=== PATIENT | female | born 1975 | race African-American/Black ===

== ENCOUNTER 2018-04-16 16:42 | Outpatient (CLI) | payer BC, OTHER ==
--- NOTE | 2018-04-17 12:50 | Ultrasound Report ---
PELVIC ULTRASOUND: 04/16/2018 CLINICAL INDICATION: Leiomyoma. TECHNIQUE: Transabdominal pelvic ultrasound performed for global evaluation. Transvaginal pelvic ultrasound performed for detailed evaluation. Real-time scanning performed and static images obtained. FINDINGS: The uterus is anteverted, measuring 14.8 x 12.4 x 7.9 cm. The endometrium measures 10 mm. The myometrium is diffusely heterogeneous, with leiomyomas measuring up to 7.4 cm in size. The ovaries are normal, with the right measuring 2.7 x 2.2 x 1.7 cm and the left measuring 2.1 x 1.8 x 1.4 cm. No free fluid is present. IMPRESSION: DIFFUSELY LEIOMYOMATOUS UTERUS, WITH DISCRETE LEIOMYOMAS MEASURING UP TO 7.4 CM IN SIZE. NORMAL OVARIES. TD: 04/17/2018 12:08
== END 2018-04-16 16:43 | disposition home or self-care (01) ==
LOC: DI 16:42
PROVIDERS: ATTEND Obstetrics & Gynecology
DX: D25.9 Leiomyoma of uterus, unspecified (principal)
CPT/HCPCS: 76830; 76856

== ENCOUNTER 2018-11-04 13:24 | Outpatient (CLI) | payer OTHER ==
--- NOTE | 2018-11-04 14:58 | XRAY Report ---
Reason: THORACIC BACK PAIN,LUMBAGO WITH SCIATICA,RIGHT VALENTINO Procedure Date: 11/04/2018 Accession Number: [id number] / [id number] Procedure: XRN - Lumbar Spine 2 View CPT Code: FULL RESULT: EXAM: LUMBOSACRAL SPINE RADIOGRAPHY EXAM DATE: 11/04/2018 01:50 PM. CLINICAL HISTORY: Thoracic back pain, lumbago with sciatica, right side. COMPARISONS: Thoracic spine 3 views 11/04/2018 1:46 PM. TECHNIQUE: 3 views. FINDINGS: Alignment: Normal. No spondylolisthesis or scoliosis. Bones: Five [id number]-[id number] lumbar vertebral bodies are present. No fractures or bone lesions. Disks: Normal. Disk heights are maintained. Facets: No degenerative changes. Sacroiliac Joints: Unremarkable. Soft Tissues: Normal. The visualized bowel gas pattern is normal. IMPRESSION: Normal lumbar spine radiography. RADIA
--- NOTE | 2018-11-04 14:59 | XRAY Report ---
Reason: THORACIC BACK PAIN,LUMBAGO WITH SCIATICA,RIGHT VALENTINO Procedure Date: 11/04/2018 Accession Number: [id number] / [id number] Procedure: XRN - Thoracic Spine 3 View CPT Code: FULL RESULT: EXAM: THORACIC SPINE RADIOGRAPHY EXAM DATE: 11/04/2018 01:50 PM. CLINICAL HISTORY: Thoracic back pain, lumbago with sciatica, right side. COMPARISON: None. TECHNIQUE: 2 views. FINDINGS: Alignment: Normal. No spondylolisthesis or scoliosis. Bones: No fractures or bone lesions. Disks: Normal. Disk heights are maintained. Soft Tissues: Normal. The visualized lungs and cardiomediastinal silhouette are normal. IMPRESSION: Normal thoracic spine radiography. RADIA
== END 2018-11-04 13:25 | disposition home or self-care (01) ==
LOC: DI.N 13:24
PROVIDERS: ATTEND Nurse Practitioner
DX: M54.6 Pain in thoracic spine (principal); M54.41 Lumbago with sciatica, right side
CPT/HCPCS: 72072; 72100

== ENCOUNTER 2019-01-06 08:00 | Outpatient (CLI) | payer OTHER ==
[2019-01-06 12:53] LABS: CALCIUM 8.6 mg/dL (8.5-10.3); CREATININE 0.6 mg/dL (0.4-1.0)
[2019-01-06 13:47] LABS: BASOPHILS % (AUTO) 0.6 %; EOSINOPHILS # (AUTO) 0.1 10^3/uL (0.0-0.7); EOSINOPHILS % (AUTO) 0.9 %; HGB - HEMOGLOBIN 12.1 g/dL (12.0-16.0); LYMPHOCYTES # (AUTO) 2.7 10^3/uL (1.5-3.5); LYMPHOCYTES % (AUTO) 47.1 %; MEAN CORPUSCULAR HEMOGLOBIN 25.7 pg (27.0-31.0); MEAN CORPUSCULAR VOLUME 80.3 fL (81.0-99.0); MEAN PLATELET VOLUME 8.3 fL (7.9-10.8); MONOCYTES # (AUTO) 0.5 10^3/uL (0.0-1.0); MONOCYTES % (AUTO) 8.7 %; NEUTROPHILS # (AUTO) 2.4 10^3/uL (1.5-6.6); NEUTROPHILS % (AUTO) 42.7 %; PLT - PLATELET COUNT 299 10^3/uL (130-450); RED BLOOD COUNT 4.71 10^6/uL (4.20-5.40); RED CELL DISTRIBUTION WIDTH 14.4 % (12.0-15.0); WHITE BLOOD COUNT 5.7 x10^3/uL (4.8-10.8)
== END 2019-01-06 23:59 | disposition home or self-care (01) ==
LOC: LAB.N 08:00
PROVIDERS: ATTEND Obstetrics & Gynecology
DX: Z01.818 Encounter for other preprocedural examination (principal); D25.9 Leiomyoma of uterus, unspecified
CPT/HCPCS: 36415; 80048; 84702; 85025; 86850; 86900; 86901

== ENCOUNTER 2019-01-08 06:12 | Day surgery (SDC) | payer OTHER ==
[2019-01-08] MEDS ORDERED: ceFAZolin 2 GM/50 ML 2 GM/50 ML BAG IV ONE (06:32)
[2019-01-08] MEDS ORDERED: LACTATED RINGERS 1,000 ML IV ONE ×3 (06:53→11:55)
[2019-01-08] MEDS ORDERED: BUPIVACAINE 0.25%-EPI 1:200000 PF 30 ML VIAL ONE (07:14)
[2019-01-08] MEDS ORDERED: METHYLENE BLUE 0.5% 50 MG/10 ML AMPULE ONE (07:14)
--- NOTE | 2019-01-08 07:16 | ANESTHESIA ---
Pre-Anesthesia VS, & Labs - Diagnosis fibroid uterus - Procedure total laparoscopic hysterectomy with bilateral salpingectomy Vital Signs: Temp Pulse Resp BP Pulse Ox 36.7 C 87 16 141/93 H 100 01/08/19 06:33 01/08/19 06:33 01/08/19 06:33 01/08/19 06:33 01/08/19 06:33 Height 5 ft 6 in Weight (kg) 88.9 kg - NPO >8 hours - Is Patient ?: No - Lab Results Lab results reviewed: Yes Home Medications and Allergies Home Medications: Ambulatory Orders Hydrochlorothiazide 12.5 mg PO DAILY 12/25/18 Hydrochlorothiazide 12.5 mg PO DAILY 12/25/18 Allergies/Adverse Reactions: Allergies Allergy/AdvReac Type Severity Reaction Status Date / Time shrimp AdvReac Rash Verified 12/25/18 10:35 Anes History & Medical History - Anesthetic History Anesthesia Complications: reports: No previous complications - Medical History Cardiovascular: reports: Hypertension, Other Pulmonary: reports: None Gastrointestinal: reports: None Urinary: reports: Kidney stones Neuro: reports: None Musculoskeletal: reports: Chronic back pain Endocrine/Autoimmune: reports: None Blood Disorders: reports: Anemia Smoking Status: Never smoker Psychosocial: reports: No issues indicated - Surgical History Gynecologic: Tubal ligation, Other Exam General: Alert, Oriented x3, Cooperative, No acute distress Dental: WNL Mouth Openin Fingerbreadth Neck Mobility: Normal Mallampati classification: II Thyromental Distance: 4-6 cm Respiratory: Lungs clear, Normal breath sounds, No respiratory distress, No accessory muscle use Cardiovascular: Regular rate, Normal S1, Normal S2, No murmurs Mental/Cognitive Status: Alert/Oriented X3, Normal for patient Plan Anesthesia Type: General Consent for Procedure(s) Verified and Reviewed: Yes Code Status: Attempt Resuscitation ASA classification: 2-Mild systemic disease Is this case an emergency?: Yes
[2019-01-08] MEDS ORDERED: BUPIVACAINE 0.25%-EPI 1:200000 PF 30 ML VIAL SUBQ ONE ×2 (08:21)
[2019-01-08] MEDS ORDERED: KETOROLAC 30 MG/ML VIAL IVP ONE (11:24)
[2019-01-08] MEDS ORDERED: LABETALOL 5 MG/1 ML 20 ML MDV IV ONE (11:24)
[2019-01-08] MEDS ORDERED: ROCURONIUM 50 MG/5 ML VIAL IVP ONE (11:24)
[2019-01-08] MEDS ORDERED: fentaNYL 250 MCG/5 ML VIAL IVP ONE (11:24)
[2019-01-08] MEDS ORDERED: NEOSTIGMINE 1 MG/1 ML 10 ML MDV IVP ONE (11:24)
[2019-01-08] MEDS ORDERED: MIDAZOLAM 2 MG/2 ML VIAL IVP ONE (11:24)
[2019-01-08] MEDS ORDERED: HYDROmorphone 1 MG/ML CARPUJECT IVP ONE (11:24)
[2019-01-08] MEDS ORDERED: GLYCOPYRROLATE 1 MG/5 ML VIAL IVP ONE (11:24)
[2019-01-08] MEDS ORDERED: PROPOFOL 200 MG/20 ML VIAL IVP ONE (11:24)
[2019-01-08] MEDS ORDERED: ONDANSETRON 4 MG/2 ML VIAL IVP ONE (11:24)
[2019-01-08] MEDS ORDERED: DEXAMETHASONE 4 MG/ML VIAL IVP ONE (11:24)
[2019-01-08] MEDS ORDERED: LIDOCAINE-MPF 2% 5 ML VIAL IM ONE (11:24)
[2019-01-08] MEDS ORDERED: ONDANSETRON 4 MG/2 ML VIAL IVP PRN (11:27)
--- NOTE | 2019-01-08 11:41 | OPERATIVE REPORT ---
Operative Report - General Procedure Date: 01/08/19 Planned Procedure: Laproscopic assisted supracervical Abdominal Hyst BS and cysto Pre-Op Diagnosis: Fibroid uterus with menorrhagia adn anemia Procedure Performed: Laproscopic assisted supracervical Abdominal Hyst BS and cysto Post Op Diagnosis: Same - Procedure Note Primary Surgeon: Jose G Rucker MD Secondary Surgeon: Gabe Malik MD Anesthesia Provider: Adam Leahy Anesthesia Technique: General ET tube Pathology: Uterus with tubes IV Fluids (mL): 1,700 Estimated Blood Loss (mL): 150 Urine Output (mL): 1,500 Complications: None
[2019-01-08] MEDS: HYDROcod/ACETAM 5/325 MG TABLET PO PRN ×2 (13:25→22:09)
[2019-01-08] MEDS ORDERED: SODIUM CHLORIDE FLUSH 0.9% 10 ML SYRINGE ONE ×3 (14:36→16:20)
[2019-01-08] MEDS: HYDROmorphone 0.5 MG/0.5 ML SYRINGE IVP PRN (14:36)
[2019-01-08] MEDS: LACTATED RINGERS 1,000 ML IV SCH ×2 (14:42→22:09)
--- NOTE | 2019-01-08 15:54 | CONSULTATION NOTE ---
Referring Provider Name of Referring Provider:: MD Ahmet Consult Date: 01/08/19 Chief Complaint - Chief Complaint Chief Complaint: bilateral leg weakness L>R, L arm weakness after surgery History of Present Illness - Admitted From Admitted From:: Home/OR - History Obtained From Records Reviewed: [facility] History obtained from: Patient and Dr. 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 Her only major medical problem is that of high blood pressure for which she takes hydrochlorothiazide. She has no hypercoagulable state, diabetes, peripheral vascular disease, smoking history, family history, or recent change in neurological status. She underwent an elective supracervical laparoscopic vaginal hysterectomy that was uncomplicated.During the removal of the uterus she did have a mild hypertensive response intraoperatively. There was no excessive bleeding. Cystoscopy showed intact ureters. Anesthesia was general anesthesia. She is an ASA class II. In the postoperative recovery area, the patient was gradually recovered and recovered normally. Vitals were normal. However, when fully awake, the patient began complaining of left arm weakness and bilateral leg weakness with the left leg heavier than the right leg. She described it as the same numb, feeling you have when you had an epidural after labor. However, physical exam done by recovery nurses as well as PYROMETER MECHANIC the surgeon indicated a normal exam. I am being asked to see the patient for consultation. She continues to feel like her left arm just is not moving as well, and that both legs, with left leg greater than right leg feel heavy. There is no paresthesia. There is no slurred speech, headache, blurred vision. There is no back pain, chest pain. Her abdominal wall hurts from the surgery. History - Past Medical History Cardiovascular: reports: Hypertension, Other Respiratory: reports: None Neuro: reports: None Endocrine/Autoimmune: reports: None GI: reports: None : reports: Kidney stones HEENT: reports: None Psych: reports: Depression, Anxiety Musculoskeletal: reports: Chronic back pain MRSA Hx?: No - Past Surgical History /FIRST ASSIST: reports: Tubal ligation, Other - Family & Social History Family History Comment/Other: No history of stroke, or hypercoagulable state. Living arrangement: At home Living Situation: With spouse/s.o. - Substance History Use: Uses substance without health or social issues: NONE Abuse: Recurrent use of substance despite neg consequences: NONE Dependence: Experiences withdrawal or developed tolerances: NONE - POLST Patient has POLST: No POLST Status: Full Code Meds/Allgy - Home Medications Home Medications: Ambulatory Orders Medication Instructions Recorded Confirmed Hydrochlorothiazide 12.5 mg PO DAILY 12/25/18 01/08/19 - Allergies Allergies/Adverse Reactions: Allergies Allergy/AdvReac Type Severity Reaction Status Date / Time shrimp AdvReac Rash Verified 12/25/18 10:35 Review of Systems - Constitutional Constitutional: denies: Fatigue, Fever, Chills, Malaise, Weight gain, Weight loss - Eyes Eyes: denies: Pain, Irritation, Amaurosis, Blurred vision, Field loss, Vision loss, Dipolpia - Ears, Nose & Throat Ears, Nose & Throat: denies: Ear pain, Hearing loss, Vertigo, Nasal pain, Sore throat, Dental pain - Cardiovascular Cariovascular: denies: Irregular heart rate, Palpitations, Chest pain, Edema, Lightheadedness, Syncope - Respiratory Respiratory: denies: Cough, Sputum production, Wheezing, Snoring, Orthopnea, SOB at rest - Gastrointestinal Gastrointestinal: reports: Abdominal pain. denies: Abdominal distention, Constipation, Diarrhea, Change in bowel habits - Genitourinary Genitourinary: denies: Dysuria, Frequency, Urgency, Flank pain - Musculoskeletal Musculoskeletal: reports: Back pain. denies: Muscle pain, Muscle aches, Stiffness, Joint pain - Integumentary Integumentary: denies: Rash, Pruritis, Pigment changes - Neurological Neurological: reports: Focal weakness. denies: Headache, Dizziness, Numbness, Memory problems - Psychiatric Psychiatric: reports: Anxiety. denies: Delusions, Hallucinations - Endocrine Endocrine: denies: Polyuria, Polydypsia, Polyphagia - Hematologic/Lymphatic Hematologic/Lymphatic: denies: Anemia, Petechiae, Blood clots Exam - Vital Signs Reviewed Vital Signs: Yes Vital Signs: Vital Signs x48h Temp Pulse Resp BP Pulse Ox 01/08/19 15:11 36.5 C 95 16 124/72 10 L 01/08/19 14:11 81 16 125/70 100 01/08/19 13:41 76 16 117/59 L 100 01/08/19 13:11 83 16 117/59 L 100 01/08/19 12:34 81 16 120/56 L 100 01/08/19 12:10 36.3 C L 70 16 121/56 L 100 01/08/19 12:00 37.3 C 77 20 117/63 99 01/08/19 11:55 37.3 C 71 17 124/68 100 01/08/19 11:50 36.5 C 76 17 120/59 L 100 01/08/19 11:45 36.5 C 79 16 122/56 L 100 01/08/19 11:40 79 20 116/62 100 01/08/19 11:35 86 14 110/58 L 100 01/08/19 11:30 36.6 C 76 19 115/57 L 100 01/08/19 11:25 61 20 123/63 100 01/08/19 11:20 64 25 H 136/71 H 100 01/08/19 11:18 37.2 C 64 16 129/75 100 - Physical Exam General Appearance: positive: No acute distress, Alert, Other (5 foot 6 inch female at 88.9 kg who is wincing with discomfort when I examined her abdomen but is otherwise comfortable) Eyes Bilateral: positive: PERRL, EOMI, Conjunctivae nml ENT: positive: Pharynx nml Neck: positive: No JVD. negative: Stiff neck, Carotid bruit Respiratory: positive: Chest non-tender. negative: Wheezes, Rales, Rhonchi Cardiovascular: positive: Regular rate & rhythm. negative: Systolic murmur, Gallop/S4, Friction rub Peripheral Pulses: positive: 1+ Abdomen: positive: No organomegaly, Nml bowel sounds, No distention, Tenderness (Over the Pfannenstiel incision, and laparoscopic port sites). negative: Guarding, Rebound, Hepatomegaly, Splenomegaly Skin: positive: Warm, Dry Extremities: positive: Non-tender, Full ROM, Nml appearance, No pedal edema Neurologic/Psychiatric: positive: Oriented x3, CN's nml (2-12), Motor nml, Sensation nml, Weakness (That is subjective. Hand program counselor is completely normal and symmetrical bilaterally. Biceps and triceps strength testing are normal. While it is difficult to lift her legs off the bed because it hurts her lower abdominal incision, she is able to do so. Symmetrical strength both legs. Symmetrical plantar and dorsiflexion strength testing. No pronator drift.). negative: Facial droop, Slurred/abnml speech Reflexes: Bicep (R): 1+, Bicep (L): 1+, Knee (R): 1+, Knee (L): 1+, Ankle (R): 0, Ankle (L): 0 Babinski Reflex: Right: Down, Left: Down Conclusion/Plan - Diagnosis Diagnosis: Subjective focal weakness in a patient who has no objective focal neurological findings on exam. This is in the immediate postoperative setting the patient who had a single episode of hypertension during surgery. It was general anesthesia, no epidural. For completeness sake, I will do a CT of the head and CT angiogram head and neck. This may be anxiety. - Lab Results Lab results reviewed: Yes
[2019-01-08] MEDS ORDERED: IOVERSOL 320 100 ML VIAL IVP ONE ×3 (16:09→20:14)
[2019-01-08 16:34] LABS: BASOPHILS % (AUTO) 0.2 %; HGB - HEMOGLOBIN 11.3 g/dL (12.0-16.0); LYMPHOCYTES # (AUTO) 1.1 10^3/uL (1.5-3.5); MEAN CORPUSCULAR HEMOGLOBIN 26.2 pg (27.0-31.0); MEAN CORPUSCULAR HGB CONC 32.7 g/dL (32.0-36.0); MEAN CORPUSCULAR VOLUME 80.3 fL (81.0-99.0); MEAN PLATELET VOLUME 7.3 fL (7.9-10.8); MONOCYTES # (AUTO) 0.4 10^3/uL (0.0-1.0); MONOCYTES % (AUTO) 3.9 %; NEUTROPHILS # (AUTO) 8.2 10^3/uL (1.5-6.6); NEUTROPHILS % (AUTO) 84.9 %; PLT - PLATELET COUNT 291 10^3/uL (130-450); RED BLOOD COUNT 4.31 10^6/uL (4.20-5.40); RED CELL DISTRIBUTION WIDTH 14.3 % (12.0-15.0); WHITE BLOOD COUNT 9.7 x10^3/uL (4.8-10.8)
[2019-01-08 16:45] LABS: ALBUMIN 3.2 g/dL (3.2-5.5); BILIRUBIN,TOTAL 0.3 mg/dL (0.2-1.0); CALCIUM 8.2 mg/dL (8.5-10.3); CREATININE 0.5 mg/dL (0.4-1.0); TOTAL PROTEIN 6.4 g/dL (6.7-8.2)
--- NOTE | 2019-01-08 17:10 | OPERATIVE REPORT ---
DATE OF SERVICE: 01/08/2019 Physician: Jose G Rucker MD PREOPERATIVE DIAGNOSES 1. Fibroid uterus. 2. Menorrhagia. 3. Anemia. POSTOPERATIVE DIAGNOSES 1. Fibroid uterus. 2. Menorrhagia. 3. Anemia. PROCEDURE: Laparoscopically assisted supracervical abdominal hysterectomy with Laparotomy salpingectomy and cystoscopy. SURGEON: Dr. Jose G Rucker. BANDER AND CELLOPHANER MACHINE HELPER: Toño Martin DO. ANESTHESIA PROVIDER: Fany Leahy CRNA. ANESTHETIC: General via endotracheal tube. PATHOLOGY: Uterus without the cervix and tubes. IV FLUIDS: 1700 mL. ESTIMATED BLOOD LOSS: 150 mL. URINE OUTPUT: 1500 mL. FINDINGS: Upon entering the abdominal cavity, there was evidence of a large globular uterus with multiple fibroids. Her examination revealed a uterus which was roughly 12 to 14 week size. The parametrium was clear of fibroids. There was an anterior fibroid noted anteriorly. The tubes showed evidence of a previous tubal ligation. There were also periappendiceal adhesions. DESCRIPTION OF PROCEDURE: Following adequate endotracheal anesthesia, patient was placed in a supine position with legs in Gerson stirrups. Pelvic examination under anesthesia revealed a uterus which was roughly 12 to 14 week size. At this point, she was prepped and draped in the usual fashion. Steen catheter was placed. Timeout was performed, in which concerns were identified and addressed. A speculum was then placed in the vagina, cervix visualized, and then with some difficulty, was able to be sounded to 11 cm. At this point, a HUMI uterine manipulator was placed without difficulty. The mill and coal transport operator's gloves were then changed, and then a stab was made in the subumbilical area with a #15 blade following local anesthesia with 0.25% Marcaine. A 5 mm trocar and sheath were placed under direct visualization on the first pass. At this point, incisions were placed in both left and right lower quadrants, and 5 mm trocars were placed under direct visualization following anesthesia with 0.25% Marcaine with epinephrine. The pelvis was inspected. There was evidence of adhesions around the appendix. These were taken down with the LigaSure. The tubes and ovaries appeared to be free of disease. There was evidence of previous laparoscopic tubal ligation. The right proximal fallopian tube was grasped with a Prestige clamp, and then the LigaSure was used to cauterize and transect the mesosalpinx on the right hand side. The round loop was doubly cauterized and then transected. The utero-ovarian ligament was cauterized and transected. The anterior leaf of the broad ligament was then opened, and the LigaSure was used to cauterize and transect down to the level of the internal os of the cervix and then across the lower uterine segment. The posterior leaf was also cauterized and transected. Care was taken to try and stay out of the arcades of vessels that followed the margin of the uterus. This was carried all the way down to the uterosacral ligaments and the uterine vessels. These were cauterized and transected. At this point, attention was turned to the left hand side. The proximal tube was grasped, and then the mesosalpinx was cauterized and transected. The round ligament was then cauterized 3 times and then transected, and then the uteroovarian ligament was cauterized and transected with the LigaSure. Then, the anterior leaf of the broad ligament was then cauterized and transected. This was carried down to meet the bladder flap, which had previously been developed on the right hand side. The posterior leaf of the broad ligament was then likewise cauterized and transected all the way down to the level of the uterine vessels. There was some difficulty, as these were distorted mildly from her previous fibroids; however, the dissection plane appeared to be very clear of the ureters, which were visualized. This was carried down to below the internal os of the cervix. At this point, the whole area appeared to be free of bleeding. The uterine vessels were cauterized, transected, and the uterus was blanching. Then, utilizing Harmonic scalpel, starting on the right hand side, the uterus was amputated from the cervix just below the internal os of the cervix. This was carried all the way down to the HUMI catheter. Then, coming in from the left hand side, the Harmonic scalpel was used to divide the cervix just below the internal os. This was carried all the way across both anteriorly and posteriorly. The area was inspected, and there was no bleeding from the cervical stump. At this point, the pelvis was irrigated free of any clots, and clots were also cleared from the remainder of the abdominal cavity. The uterus had placed in the cul-de-sac. The trocars and instruments were removed from the abdominal cavity. A Pfannenstiel incision was carried just above the crease in the suprapubic region. This was done after injecting this area with 0.25% Marcaine with epinephrine. The incision was carried down to the fascia, the fascia incised transversely, and then the rectus was split midline. Care was taken to avoid any injury to bowel or bladder. At this point, there was some oozing that was coming up through the incision. There was no evidence of bleeding from the wound itself, so the uterus was grasped with a single-tooth tenaculums and worked its way out through the incision. The incision was inspected, no bleeding noted, so the peritoneum was closed. Utilizing 2-0 Vicryl, the fascia was reapproximated with 0 Vicryl, and the subcutaneous tissue was closed with 2 interrupted sutures of 0 Vicryl. The incision itself was closed using 4-0 Monocryl subcuticular. Because of the oozing that was observed, we did decide to reintroduce the laparoscopic instruments in the subumbilical as well as the right ports. The pelvis was inspected. There was no bleeding from the left or right side of the pelvic wall or from the cervix; therefore, the pelvis was then irrigated and suctioned free of any blood or clot. The area was inspected, and again no bleeding noted, so the instruments were removed from the vagina. CO2 was allowed to escape. All of the subumbilical as well as left and right lower quadrant incisions were closed using Monocryl. These were all then dressed utilizing Dermabond. Attention was then turned to the pelvis. With some difficulty, the cystoscope was passed through the urethra and the entire bladder was inspected. There was no evidence of any bleeding or injury to the bladder. There was evidence of good urine flow through both ureteral orifices. At this point, the procedure was terminated. Sponge, needle and lap counts were correct. The patient tolerated the procedure well and was taken to recovery in stable condition. TD: 01/08/2019 14:22 BARBY
--- NOTE | 2019-01-08 20:35 | CT Report ---
Reason: bl leg L>R weak, L arm weak p surgery Procedure Date: 01/08/2019 Accession Number: [id number] / [id number] Procedure: CT - Head W/O Stroke Protocol CPT Code: FULL RESULT: EXAM: CT HEAD EXAM DATE: 01/08/2019 08:08 PM. CLINICAL HISTORY: Bilateral lower extremity weakness, left arm weakness post hysterectomy today COMPARISON: None. TECHNIQUE: Multiaxial CT images were obtained from the foramen magnum to the vertex. Reformats: Sagittal and coronal. IV contrast: None. In accordance with CT protocol optimization, one or more of the following dose reduction techniques were utilized for this exam: automated exposure control, adjustment of mA and/or KV based on patient size, or use of iterative reconstructive technique. FINDINGS: Parenchyma: No intraparenchymal hemorrhage. No evidence of mass, midline shift, or CT findings of acute infarction. Foote-white differentiation is distinct. Extraaxial Spaces: Normal for age. No subdural or epidural collections identified. Ventricles: Normal in size and position. Sinuses and Orbits: Imaged paranasal sinuses, orbits, and mastoids show no significant abnormality. Bones: No evidence of fracture or calvarial defect. Other: None. IMPRESSION: Normal head CT. Aspect scored 10 out of 10 RADIA The critical test notification system was initiated by Dr. Jerome Fraire at 08:25 PM on 01/08/2019. The above critical test findings were discussed with Cee Calvin by Dr. Jerome Fraire at 08:34 PM on 01/08/2019.
[2019-01-08] MEDS: KETOROLAC 30 MG/ML VIAL IVP PRN (20:37)
--- NOTE | 2019-01-08 20:38 | CT Report ---
Reason: bilateral leg weakness L>R p surgery Procedure Date: 01/08/2019 Accession Number: [id number] / [id number] Procedure: CT - ANGIO NECK W/WO CPT Code: FULL RESULT: EXAM: CT ANGIOGRAM HEAD AND NECK. CT SCAN HEAD WITH CONTRAST. EXAM DATE:01/08/2019 08:08 PM. CLINICAL HISTORY:Bl leg weakness LR p surgery, L arm wakness. COMPARISON:None. TECHNIQUE: Routine axial helical CTA imaging was performed from the aortic arch through the [place]. Routine axial CT imaging of the head was performed prior to and following contrast administration. Reconstructions: Routine multiplanar 3D MIP reconstructions. IV contrast: 80 cc Optiray 320. NASCET Criteria are used for stenosis measurements. In accordance with CT protocol optimization, one or more of the following dose reduction techniques were utilized for this exam: automated exposure control, adjustment of mA and/or KV based on patient size, or use of iterative reconstructive technique. FINDINGS: Post Contrast Head: There is no mass, mass effect, midline shift or abnormal extraaxial fluid collection. Size and configuration of the ventricles appear normal. There is no intracranial hemorrhage. Foote white matter differentiation is maintained. Brain stem and cerebellum appear unremarkable. Calvarium and skull base appear intact and normal. Orbits and extracranial soft tissue appear unremarkable. No abnormal enhancement. Foote white matter differentiation appear preserved. Dural venous sinus and deep cerebral veins appear normal. CTA HEAD: Anterior Circulation: Mild, 50% stenosis at the anterior cavernous right ICA. The internal carotid arteries (ICA), middle cerebral arteries (MCA), and anterior cerebral arteries (CHIP) are patent bilaterally. The anterior communicating artery (A-COM) appears patent. No aneurysms, stenoses, or anatomic anomalies evident. Posterior Circulation: The superior vertebral artery, basilar, and posterior cerebral arteries (CFA) are patent. No aneurysms, stenoses, or anomalies evident. The posterior communicating arteries (P-COM) are patent bilaterally. CTA NECK: Right Carotid: The common carotid, internal carotid, and external carotid arteries are widely patent. No dissection, significant atherosclerotic plaque, or calcification identified. No significant stenosis by NASCET criteria. Left Carotid: The common carotid, internal carotid, and external carotid arteries are widely patent. No dissection, significant atherosclerotic plaque, or calcification identified. No significant stenosis by NASCET criteria. Vertebrals: The vertebrobasilar system shows no stenosis, dissection, aneurysm, or significant atherosclerotic disease. Aortic arch and pulmonary artery appear normal. Other: The visualized brain parenchyma, bones, soft tissues, and lung apices are within normal limits. IMPRESSION: CT SCAN HEAD: Normal CT scan of the head with contrast. CT ANGIOGRAM NECK: No significant cervical carotid or vertebral artery stenosis. No evidence for dissection. CT ANGIOGRAM HEAD: Mild, likely atherosclerotic focal narrowing of the distal cavernous right ICA. Otherwise no significant intracranial arterial stenosis or proximal arterial occlusion. No evidence for aneurysm. RADIA
--- NOTE | 2019-01-08 20:38 | CT Report ---
Reason: bl leg weakness L>R p surgery, L arm wakness Procedure Date: 01/08/2019 Accession Number: [id number] / [id number] Procedure: CT - ANGIO HEAD W CPT Code: FULL RESULT: EXAM: CT ANGIOGRAM HEAD AND NECK. CT SCAN HEAD WITH CONTRAST. EXAM DATE:01/08/2019 08:08 PM. CLINICAL HISTORY:Bl leg weakness LR p surgery, L arm wakness. COMPARISON:None. TECHNIQUE: Routine axial helical CTA imaging was performed from the aortic arch through the [place] of [place]. Routine axial CT imaging of the head was performed prior to and following contrast administration. Reconstructions: Routine multiplanar 3D MIP reconstructions. IV contrast: 80 cc Optiray 320. NASCET Criteria are used for stenosis measurements. In accordance with CT protocol optimization, one or more of the following dose reduction techniques were utilized for this exam: automated exposure control, adjustment of mA and/or KV based on patient size, or use of iterative reconstructive technique. FINDINGS: Post Contrast Head: There is no mass, mass effect, midline shift or abnormal extraaxial fluid collection. Size and configuration of the ventricles appear normal. There is no intracranial hemorrhage. [place] white matter differentiation is maintained. Brain stem and cerebellum appear unremarkable. Calvarium and skull base appear intact and normal. Orbits and extracranial soft tissue appear unremarkable. No abnormal enhancement. [place] white matter differentiation appear preserved. Dural venous sinus and deep cerebral veins appear normal. CTA HEAD: Anterior Circulation: Mild, 50% stenosis at the anterior cavernous right ICA. The internal carotid arteries (ICA), middle cerebral arteries (MCA), and anterior cerebral arteries (CHIP) are patent bilaterally. The anterior communicating artery (A-COM) appears patent. No aneurysms, stenoses, or anatomic anomalies evident. Posterior Circulation: The superior vertebral artery, basilar, and posterior cerebral arteries ([employer]HER) are patent. No aneurysms, stenoses, or anomalies evident. The posterior communicating arteries (P-COM) are patent bilaterally. CTA NECK: Right Carotid: The common carotid, internal carotid, and external carotid arteries are widely patent. No dissection, significant atherosclerotic plaque, or calcification identified. No significant stenosis by NASCET criteria. Left Carotid: The common carotid, internal carotid, and external carotid arteries are widely patent. No dissection, significant atherosclerotic plaque, or calcification identified. No significant stenosis by NASCET criteria. Vertebrals: The vertebrobasilar system shows no stenosis, dissection, aneurysm, or significant atherosclerotic disease. Aortic arch and pulmonary artery appear normal. Other: The visualized brain parenchyma, bones, soft tissues, and lung apices are within normal limits. IMPRESSION: CT SCAN HEAD: Normal CT scan of the head with contrast. CT ANGIOGRAM NECK: No significant cervical carotid or vertebral artery stenosis. No evidence for dissection. CT ANGIOGRAM HEAD: Mild, likely atherosclerotic focal narrowing of the distal cavernous right ICA. Otherwise no significant intracranial arterial stenosis or proximal arterial occlusion. No evidence for aneurysm. RADIA
[2019-01-09] MEDS: HYDROmorphone 0.5 MG/0.5 ML SYRINGE IVP PRN (00:11)
[2019-01-09] MEDS: KETOROLAC 30 MG/ML VIAL IVP PRN (04:44)
[2019-01-09] MEDS: HYDROcod/ACETAM 5/325 MG TABLET PO PRN ×2 (07:44→11:38)
[2019-01-09 07:46] VITALS: BP 135/75
--- NOTE | 2019-01-09 08:14 | PROVIDER PROGRESS NOTE ---
Subjective - General Procedure Date: 01/08/19 Post Op Days: 1 Procedure Performed: Laproscopic assisted abdominal supracervical hysterectomy with bilat saplpi - Review of Systems Wound/Incisions: positive: Dressing dry and intact, No drainage General: positive: No symptoms (Pain 4/10 good control) Gastrointestinal: positive: No symptoms, Flatus. negative: Nausea Genitourinary: positive: No symptoms. negative: Dysuria Neurological: Objective - Patient Data Reviewed Vital Signs: Yes Vital Signs: Vital Signs x48h Temp Pulse Resp BP Pulse Ox 01/09/19 07:45 36 C L 96 16 135/75 H 99 01/09/19 04:55 36.8 C 95 14 119/67 97 Weight: Weight 01/07/19 01/08/19 01/09/19 23:59 23:59 23:59 Weight (kg) 88.9 kg Intake & Output: Intake and Output Totals x24h 01/07/19 01/08/19 01/09/19 23:59 23:59 23:59 Intake Total 2745 590 Output Total 1600 Balance 1145 590 - Lab Results Lab Results: 01/08/19 16:30 01/08/19 16:30 Other Lab Results: Lab Results x24hrs 01/08/19 01/08/19 Range/Units 16:30 16:30 WBC 9.7 (4.8-10.8) x10^3/uL RBC 4.31 (4.20-5.40) 10^6/uL Hgb 11.3 L (12.0-16.0) g/dL Hct 34.6 L (37.0-47.0) % MCV 80.3 L (81.0-99.0) fL MCH 26.2 L (27.0-31.0) pg MCHC 32.7 (32.0-36.0) g/dL RDW 14.3 (12.0-15.0) % Plt Count 291 (130-450) 10^3/uL MPV 7.3 L (7.9-10.8) fL Neut # (Auto) 8.2 H (1.5-6.6) 10^3/uL Lymph # (Auto) 1.1 L (1.5-3.5) 10^3/uL [place] # (Auto) 0.4 (0.0-1.0) 10^3/uL Eos # (Auto) 0.0 (0.0-0.7) 10^3/uL Baso # (Auto) 0.0 (0.0-0.1) 10^3/uL Absolute Nucleated RBC 0.00 x10^3/uL Nucleated RBC % 0.0 /100WBC Sodium 134 L (135-145) mmol/L Potassium 3.8 (3.5-5.0) mmol/L Chloride 100 L (101-111) mmol/L Carbon Dioxide 26 (21-32) mmol/L Anion Gap 8.0 (6-13) BUN 8 (6-20) mg/dL Creatinine 0.5 (0.4-1.0) mg/dL Estimated GFR (MDRD) 163 (>89) Glucose 136 H (70-100) mg/dL Calcium 8.2 L (8.5-10.3) mg/dL Total Bilirubin 0.3 (0.2-1.0) mg/dL AST 24 (10-42) IU/L ALT 14 (10-60) IU/L Alkaline Phosphatase 88 (42-121) IU/L Total Protein 6.4 L (6.7-8.2) g/dL Albumin 3.2 (3.2-5.5) g/dL Globulin 3.2 (2.1-4.2) g/dL Albumin/Globulin Ratio 1.0 (1.0-2.2) - Imaging Results Radiology Imaging: positive: Prelim report reviewed - Current Medications Current Medications: Current Medications Generic Name Dose Route Start Last Admin Trade Name Ronalq PRN Reason Stop Dose Admin Hydrocodone Bitart/Acetaminophen 1 tab 01/08/19 11:27 01/09/19 07:44 [place] 5/325 PO 1 tab Q4HR PRN Administration PAIN Hydrochlorothiazide 12.5 mg 01/09/19 09:00 01/09/19 07:51 Hydrodiuril PO Not Given DAILY SUZY Hydromorphone HCl 0.5 mg 01/08/19 11:27 01/09/19 00:11 Dilaudid Inj Syringe IVP 0.5 mg Q30M PRN Administration Breakthrough Pain Lactated Ringer's 1,000 mls @ 100 mls/hr 01/08/19 13:00 01/09/19 05:06 Lr IV 100 mls/hr .Q10H SUZY Infusion Ioversol 100 ml 01/08/19 20:14 01/08/19 20:15 Optiray 320 IVP 01/08/19 20:15 80 ml ONCE ONE Administration Ketorolac Tromethamine 30 mg 01/08/19 11:32 01/09/19 04:44 Toradol Inj (30mg) IVP 01/13/19 11:31 30 mg Q6HR PRN Administration PAIN Ondansetron HCl 4 mg 01/08/19 11:27 01/08/19 15:49 Zofran Inj IVP 4 mg Q6HR PRN Administration Nausea / Vomiting - Physical Exam Wound/Incisions: positive: Dressing dry and intact, No drainage General Appearance: positive: No acute distress, Alert Respiratory: positive: Chest non-tender, No respiratory distress, Breath sounds nml Cardiovascular: positive: Regular rate & rhythm, No murmur, No gallop Abdomen: positive: Non-tender, No organomegaly, Nml bowel sounds, No distention Back: negative: CVA tenderness (R), CVA tenderness (L) Skin: positive: Color nml, No rash, Warm, Dry Extremities: negative: Calf tenderness Neurologic/Psychiatric: positive: Oriented x3 Impression/Plan - Problem List Problem List: POD #1 progressing well Send home Discharge meds [place] Reviewed S/S of infection. RTC 1 week
[2019-01-09] MEDS: LACTATED RINGERS 1,000 ML IV SCH (08:25)
[2019-01-09] MEDS ORDERED: hydroCHLOROthiazide 12.5 MG CAPSULE PO SCH (09:00)
--- NOTE | 2019-01-09 11:15 | PROVIDER PROGRESS NOTE ---
Subjective - Prog Note Date Prog Note Date: 01/09/19 Prog Note Time: 08:00 - Subjective Pt reports feeling: Improved Subjective: She had a CT of the head which was negative. CT angiogram was also negative. Patient noted that when she had a dye study it made her have a diffuse warm feeling all over. When she had that all of her leg heaviness and weakness went away. Anesthesia has a good point. This patient was in the lithotomy position for 4 hours. She also had her left arm out in the same position because this were the IV was during her surgery. Could she have had ligament or fascial strain and pain with nerve compression because of the lithotomy position? Current Medications - Current Medications Current Medications: Active Medications Hydrocodone Bitart/Acetaminophen ([place] 5/325) 1 tab PO Q4HR PRN PRN Reason: PAIN Last Admin: 01/09/19 07:44 Dose: 1 tab Hydrochlorothiazide (Hydrodiuril) 12.5 mg PO DAILY SUZY Last Admin: 01/09/19 07:51 Dose: Not Given Hydromorphone HCl (Dilaudid Inj Syringe) 0.5 mg IVP Q30M PRN PRN Reason: Breakthrough Pain Last Admin: 01/09/19 00:11 Dose: 0.5 mg Lactated Ringer's (Lr) 1,000 mls @ 100 mls/hr IV .Q10H SUZY Last Infusion: 01/09/19 08:37 Dose: Infused Ketorolac Tromethamine (Toradol Inj (30mg)) 30 mg IVP Q6HR PRN PRN Reason: PAIN Stop: 01/13/19 11:31 Last Admin: 01/09/19 04:44 Dose: 30 mg Ondansetron HCl (Zofran Inj) 4 mg IVP Q6HR PRN PRN Reason: Nausea / Vomiting Last Admin: 01/08/19 15:49 Dose: 4 mg Hydrochlorothiazide 12.5 mg PO DAILY 12/25/18 Objective - Vital Signs/Intake & Output Vital Signs: Vital Signs x48h Temp Pulse Resp BP Pulse Ox 01/09/19 07:45 36 C L 96 16 135/75 H 99 01/09/19 04:55 36.8 C 95 14 119/67 97 Intake & Output: Intake & Output 01/06/19 01/07/19 01/08/19 01/09/19 23:59 23:59 23:59 23:59 Intake Total 7095 941 Output Total 1600 Balance 1141 941 - Objective General Appearance: positive: No acute distress, Alert Eyes Bilateral: positive: PERRL ENT: positive: Pharynx nml Neck: negative: Stiff neck, Carotid bruit Respiratory: positive: Chest non-tender, No respiratory distress. negative: Wheezes, Rales, Rhonchi Cardiovascular: positive: Regular rate & rhythm. negative: Systolic murmur, Gallop/S4, Friction rub Abdomen: positive: No organomegaly, Nml bowel sounds, Tenderness (Over incision sites. She has told a pillow over to try and get up when she flexes her abdominal wall) Skin: positive: Warm, Dry Extremities: positive: Full ROM, Nml appearance, No pedal edema Neurologic/Psychiatric: positive: Oriented x3, CN's nml (2-12), Motor nml, Sensation nml - Lab Results Fish Bones: 01/08/19 16:30 01/08/19 16:30 Other Labs: Lab Results x24hrs 01/08/19 01/08/19 Range/Units 16:30 16:30 WBC 9.7 (4.8-10.8) x10^3/uL RBC 4.31 (4.20-5.40) 10^6/uL Hgb 11.3 L (12.0-16.0) g/dL Hct 34.6 L (37.0-47.0) % MCV 80.3 L (81.0-99.0) fL MCH 26.2 L (27.0-31.0) pg MCHC 32.7 (32.0-36.0) g/dL RDW 14.3 (12.0-15.0) % Plt Count 291 (130-450) 10^3/uL MPV 7.3 L (7.9-10.8) fL Neut # (Auto) 8.2 H (1.5-6.6) 10^3/uL Lymph # (Auto) 1.1 L (1.5-3.5) 10^3/uL [place] # (Auto) 0.4 (0.0-1.0) 10^3/uL Eos # (Auto) 0.0 (0.0-0.7) 10^3/uL Baso # (Auto) 0.0 (0.0-0.1) 10^3/uL Absolute Nucleated RBC 0.00 x10^3/uL Nucleated RBC % 0.0 /100WBC Sodium 134 L (135-145) mmol/L Potassium 3.8 (3.5-5.0) mmol/L Chloride 100 L (101-111) mmol/L Carbon Dioxide 26 (21-32) mmol/L Anion Gap 8.0 (6-13) BUN 8 (6-20) mg/dL Creatinine 0.5 (0.4-1.0) mg/dL Estimated GFR (MDRD) 163 (>89) Glucose 136 H (70-100) mg/dL Calcium 8.2 L (8.5-10.3) mg/dL Total Bilirubin 0.3 (0.2-1.0) mg/dL AST 24 (10-42) IU/L ALT 14 (10-60) IU/L Alkaline Phosphatase 88 (42-121) IU/L Total Protein 6.4 L (6.7-8.2) g/dL Albumin 3.2 (3.2-5.5) g/dL Globulin 3.2 (2.1-4.2) g/dL Albumin/Globulin Ratio 1.0 (1.0-2.2) Assessment/Plan - Problem List (1) Focal motor deficit Impression: That was subjective and nothing on objective exam. CT the head is negative. I concur with anesthesia. The/she may have just been muscle strain and damage with nerve compression being in the lithotomy position for 4 hours. Her arm got better faster because she was able to move it faster. We will add CPK. At this time no further workup needed.
== END 2019-01-09 11:59 | disposition home or self-care (01) ==
LOC: SDS 06:12 → OBS 13:46 → SDS 13:46 → OBS 01-09 11:59 → SDS 01-09 11:59
PROVIDERS: ATTEND Obstetrics & Gynecology
PROC: 0UT74ZZ Resection of Bilateral Fallopian Tubes, Percutaneous Endoscopic Approach (ICD-10-PCS; 2019-01-08)
PROC: 0UT94ZL Resection of Uterus, Supracervical, Percutaneous Endoscopic Approach (ICD-10-PCS; principal; 2019-01-08 07:30)
DX: D25.2 Subserosal leiomyoma of uterus (principal); D25.1 Intramural leiomyoma of uterus; N92.0 Excessive and frequent menstruation with regular cycle; D64.9 Anemia, unspecified; R53.1 Weakness; I10 Essential (primary) hypertension; F41.9 Anxiety disorder, unspecified; F32.9 Major depressive disorder, single episode, unspecified; N80.0 Endometriosis of uterus
CPT/HCPCS: 36415; 58542; 70450; 70496; 70498; 80053; 82550; 85025; A9270; J0690; J1170; J3010; J7120; Q9967; 81025